=== PATIENT | female | born 1965 | race Caucasian/White ===

== ENCOUNTER 2018-01-19 17:25 | Emergency (ER) | payer BC, OTHER ==
[~2018-01-19] VITALS: Ht 157.5 cm; Wt 143.2 kg
[~2018-01-19 17:25] MED LIST: CARB200T16; ENAL5TAB98; IBUP-232 PO
[2018-01-19 17:41] VITALS: BP 214/102; PULSE 98; RESP 20; TEMP 98; O2SAT 97
[2018-01-19] MEDS ORDERED: ENAL20TA81 PO (18:02)
[2018-01-19] MEDS ORDERED: TEGR200T PO (18:02)
--- NOTE | 2018-01-19 18:25 | PD ---
HPI Chief Complaint: Cold / Flu Symptoms Time Seen by Provider: 18:11 Travel History International Travel<30 days: No Contact w/Intl Traveler<30days: No Traveled to known affect area: No History of Present Illness HPI 52-year-old female here for evaluation of cough and upper respiratory symptoms. She states that the symptoms have been going on for about 3 weeks. Cough is occasionally productive of yellowish/greenish sputum, and rhinorrhea is clear. No hemoptysis. She was prescribed Augmentin as well as guaifenesin with codeine by a primary care physician about 5 days ago which she has been taking without relief of her symptoms. She recently started taking Mucinex with mild relief. She has had subjective fevers and chills. She reports having had a sore throat about 3 weeks ago which has resolved. No history of pulmonary disease. She is a non-smoker. The patient is also requesting an MRI for her right shoulder where she has been having chronic pain and had an MRI ordered by primary care physician, however she now has no insurance. [facility] Past Medical History Hypertension: Yes Seizures: Yes ?: Not Past Surgical History Cholecystectomy: Yes Other Surgery: Yes (FATTY TUMORS REMOVED FROM ABDOMEN) Social History Alcohol Use: No Tobacco Use: No Allergies-Medications (Allergen,Severity, Reaction): Coded Allergies: cortisone (Unverified Allergy, Mild, RASH, 06/24/17) Reported Meds & Prescriptions Reported Meds & Active Scripts Active Reported Vasotec (Enalapril Maleate) 20 Mg Tab 20 Mg PO DAILY Tegretol (Carbamazepine) 200 Mg Tab 200 Mg PO BID Review of Systems Except as stated in HPI: all other systems reviewed are Neg Physical Exam Narrative GENERAL: Well-developed, well-nourished, no apparent distress. SKIN: Focused skin assessment warm/dry. HEAD: Atraumatic. Normocephalic. EYES: Pupils equal and round. No scleral icterus. No injection or drainage. ENT: No nasal bleeding or discharge. Mucous membranes pink and moist. NECK: Trachea midline. No JVD. CARDIOVASCULAR: Regular rate and rhythm. RESPIRATORY: No accessory muscle use. Mild inspiratory and expiratory wheezes bilaterally. Breath sounds equal bilaterally. GASTROINTESTINAL: Abdomen soft, non-tender, nondistended. Hepatic and splenic margins not palpable. MUSCULOSKELETAL: No obvious deformities. No clubbing. No cyanosis. NEUROLOGICAL: Awake and alert. No obvious cranial nerve deficits. Motor grossly within normal limits. Normal speech. PSYCHIATRIC: Appropriate mood and affect; insight and judgment normal. Data Data Last Documented VS Vital Signs Date Time Temp Pulse Resp B/P (MAP) Pulse Ox O2 Delivery O2 Flow Rate FiO2 01/19/18 19:06 104 20 133/97 (109) 98 Room Air 01/19/18 17:41 98.0 Orders Orders Influenzae A/B Antigen (01/19/18 18:16) Albuterol Neb (Albuterol Neb) (01/19/18 18:30) Prednisone (Deltasone) (01/19/18 18:30) Chest, Single Ap (01/19/18 ) MDM Medical Decision Making Medical Screen Exam Complete: Yes Emergency Medical Condition: Yes Differential Diagnosis Bronchitis, pneumonia, URI, influenza Narrative Course Vital signs reviewed. Chest x-ray shows no acute disease. Influenza is negative. The patient was given a DuoNeb treatment and oral prednisone, and the patient reports feeling improved. She likely has bronchitis. She will be discharged home with a prescription for albuterol inhaler, prednisone, and a Z-Inocencio. She was advised to follow-up with her primary care physician this week. She was informed on when to return to the emergency department. She verbalizes understanding and agreement with plan. Diagnosis Primary Impression: Bronchitis Referrals: Primary Care Physician 1 week Additional Instructions: Follow-up with your primary care physician this week. Return to the emergency department for worsening symptoms or any other concerns. Scripts Azithromycin (Zithromax Z-Inocencio) 250 Mg Dspk 250 MG PO DIRECTED for Infection, #1 DSPK 0 Refills 500 MG (2 tabs) day 1, then 1 tab days 2-5. Prov: Dakota Juarez MD 01/19/18 Prednisone (Prednisone) 50 Mg Tab 50 MG PO DAILY for 5 Days, #5 TAB 0 Refills Prov: Dakota Juarez MD 01/19/18 Albuterol 18 GM Inh (Ventolin Hfa 18 GM Inh) 90 Mcg/Act Aer 2 PUFF INH Q4-6H Y for SHORTNESS OF BREATH, #1 INHALER 0 Refills Prov: Dakota Juarez MD 01/19/18 Disposition: 01 DISCHARGE HOME Condition: Stable Dakota Juarez MD Jan 19, 2018 18:25
[2018-01-19] MEDS ORDERED: predniSONE 50 MG TAB PO ONE (18:30)
[2018-01-19] MEDS ORDERED: RESP: ALBUTEROL 2.5 MG/3 ML NEB (SCH) INH ONE (18:30)
--- NOTE | 2018-01-19 18:36 | RADRPT ---
EXAM DATE/TIME: 01/19/2018 18:21 [place] COMPARISON: No previous studies available for comparison. INDICATIONS : Cough and congestion. MEDICAL HISTORY : None. SURGICAL HISTORY : None. ENCOUNTER: Initial ACUITY: 2 weeks PAIN SCORE: 0/10 LOCATION: Bilateral chest FINDINGS: A single view of the chest demonstrates the lungs to be symmetrically aerated without evidence of mas s, infiltrate or effusion. The cardiomediastinal contours are unremarkable. Osseous structures are intact. CONCLUSION: No evidence of acute cardiopulmonary disease. Slick Cameron MD on January 19, 2018 at 18:34 Board Certified Radiologist. This report was verified electronically.
[2018-01-19 19:06] VITALS: BP 133/97; PULSE 104; RESP 20; O2SAT 98
[2018-01-19] MEDS ORDERED: VENTAER INH (19:43)
[2018-01-19] MEDS ORDERED: PRED50 PO (19:43)
[2018-01-19] MEDS ORDERED: ZITHTAB PO (19:43)
== END 2018-01-19 19:50 | disposition home or self-care (01) ==
LOC: NEPD 17:25
DX: J40 Bronchitis, not specified as acute or chronic (principal); I10 Essential (primary) hypertension
CPT/HCPCS: 71045; 87804; 94664; 99284; J7512; J7613